=== PATIENT | male | born 1965 | race Caucasian/White ===

== ENCOUNTER 2020-05-30 12:29 | Outpatient (REF) | payer MEDICARE, MEDICAID, SELFPAY ==
--- NOTE | 2020-05-30 12:41 | XR_ITS ---
EXAMINATION: XR ANKLE, RIGHT CLINICAL INFORMATION: Anesthesia the skin, right ankle COMPARISON: None TECHNIQUE: AP, lateral, and mortise views of the right ankle. FINDINGS: No fracture or dislocation. The ankle mortise is congruent. There is a corticated ossification adjacent to the medial malleolus. Mild spurring along the ankle mortise. No ankle joint effusion. Heel spurs are noted. No gross soft tissue abnormality. XR/XR ankle RT min 3V IMPRESSION: Mild chronic and degenerative changes at the ankle. No acute abnormality. Appropriate alignment. Heel spurs noted.
[2020-05-30 14:28] LABS: D Dimer < 200 NG/ML
== END 2020-05-30 12:30 | disposition home or self-care (01) ==
LOC: HO.HMGCX 12:29
PROVIDERS: Visit Provider Nurse Practitioner Family
DX: M25.471 Effusion, right ankle (principal); R20.0 Anesthesia of skin; R20.2 Paresthesia of skin
CPT/HCPCS: 36415; 73610; 85379

== ENCOUNTER 2021-02-09 09:13 | Emergency (ER) | payer MEDICARE, MEDICAID, SELFPAY ==
--- NOTE | ~2021-02-09 | XR_ITS ---
EXAMINATION: THORACIC AND LUMBAR SPINE X-RAY CLINICAL INFORMATION: Pain post fall COMPARISON: None TECHNIQUE: 3 views of the thoracic spine and 3 views of the lumbar spine FINDINGS: Thoracic spine: Bone alignment is normal. No fracture or dislocation is seen. There is multilevel degenerative spondylosis and degenerative disc disease in the mid and lower thoracic spine. Paraspinal soft tissues are normal. Lumbar spine: There is curvature of the lower lumbar sacral spine to the right. There is mild retrolisthesis of L2 with respect to L3. Bone alignment is otherwise normal. There is degenerative disc disease at L2-L3 and L5-S1. There is lower lumbar spine facet arthritis. XR/XR thoracic spine 3V IMPRESSION: No fracture or dislocation seen. Degenerative changes.
--- NOTE | ~2021-02-09 | XR_ITS ---
EXAMINATION: THORACIC AND LUMBAR SPINE X-RAY CLINICAL INFORMATION: Pain post fall COMPARISON: None TECHNIQUE: 3 views of the thoracic spine and 3 views of the lumbar spine FINDINGS: Thoracic spine: Bone alignment is normal. No fracture or dislocation is seen. There is multilevel degenerative spondylosis and degenerative disc disease in the mid and lower thoracic spine. Paraspinal soft tissues are normal. Lumbar spine: There is curvature of the lower lumbar sacral spine to the right. There is mild retrolisthesis of L2 with respect to L3. Bone alignment is otherwise normal. There is degenerative disc disease at L2-L3 and L5-S1. There is lower lumbar spine facet arthritis. XR/XR lumbar spine 2-3V IMPRESSION: No fracture or dislocation seen. Degenerative changes.
[2021-02-09 09:45] VITALS: BP 187/110; PULSE 89; RESP 16; TEMP 35.7; O2SAT 98; BMI 36.0
--- NOTE | 2021-02-09 09:57 | PC.NURSE ---
pt placed in a w/c after being triaged and placed in the waiting room.
--- NOTE | 2021-02-09 10:20 | ED.BACK ---
HPI - Back Pain/Injury General Chief Complaint: Back Pain/Injury Stated Complaint: back pain Time Seen by Provider: 02/09/21 10:14 Source: patient Mode of arrival: ambulatory Limitations: no limitations History of Present Illness HPI Narrative: Patient comes emergency room complaining of lower thoracic and lumbar pain. Patient states that yesterday he had a seizure, he is not sure how he fell, but he has been complaining of back pain since then. Patient states the pain is localized, nonradiating, denies urinary/fecal incontinence or retention, no difference in sensation in perineal area. Patient states that he usually takes 1500 mg of divalproex at night, but yesterday due to the seizure he was postictal and did not take it, and has not taken it yet. Patient states that he usually gets 1 or 2 seizures per month. States this seizure was not out of the ordinary for him. MD elicited complaint: back injury Related Data Home Medications Medication Instructions Recorded Confirmed albuterol sulfate 90 mcg/actuation INHALATION 05/30/20 aerosol inhaler aspirin 81 mg tablet,delayed 81 mg PO DAILY 05/30/20 release atorvastatin 40 mg tablet 40 mg PO DAILY 05/30/20 clonazepam 0.5 mg tablet 0.5 mg PO TID PRN 05/30/20 clonazepam 1 mg tablet 1 mg PO BID PRN 05/30/20 divalproex 500 mg tablet,delayed 1,500 mg PO BEDTIME 05/30/20 release doxepin 6 mg tablet 6 mg PO BEDTIME PRN 05/30/20 fluticasone furoate 100 INHALATION 05/30/20 mcg-vilanterol 25 mcg/dose inhalation powder folic acid 1 mg tablet 1 mg PO DAILY 05/30/20 gabapentin 800 mg tablet 800 mg PO TID 05/30/20 haloperidol 2 mg tablet 2 mg PO BEDTIME 05/30/20 losartan 50 mg tablet 50 mg PO DAILY 05/30/20 melatonin 5 mg capsule mg PO BEDTIME 05/30/20 metformin 1,000 mg tablet 1,000 mg PO BID 05/30/20 omeprazole 20 mg capsule,delayed 20 mg PO DAILY 05/30/20 release Previous Rx's Medication Instructions Recorded tramadol 50 mg tablet 50 mg PO BID PRN #10 tab 02/09/21 Allergies Allergy/AdvReac Type Severity Reaction Status Date / Time lactose [LACTOSE] Allergy Unknown DIARRHEA Unverified 03/30/20 16:45 lisinopril [LISINOPRIL] Allergy Unknown COUGH Unverified 03/30/20 16:45 Review of Systems Review of Systems: Constitutional : No Weight loss, No Fever, No Chills, No Night Sweats, No Fatigue, No Malaise ENT/Mouth : No Hearing loss, No Ear Pain, No Nasal Congestion, No Sinus Pain, No Hoarseness, No sore throat, No Rhinorrhea, No Swallowing Difficulty Eyes: No Eye Pain, No Swelling, No Redness, No Foreign Body, No Discharge, No Vision Changes Cardiovascular : No Chest Pain, No SOB, No Dyspnea on Exertion, No Orthopnea, No Edema, No Palpitations Respiratory : No Cough, No Sputum, No Wheezing, No Smoke Exposure, No Dyspnea Gastrointestinal : No Nausea, No Vomiting, No Diarrhea, No Constipation, No abdominal Pain, No Hematochezia, No Melena Genitourinary : no irregular bleeding, No Dysuria, No Urinary Frequency, No Hematuria, No Urinary Incontinence, No Urgency, No Flank Pain, No Urinary Flow Changes, No Hesitancy Musculoskeletal : No joint pain, complaining of lower back pain bilaterally, lower thoracic and lumbar area. Skin : No Skin Lesions, No rash Neuro : No Weakness, No Numbness, No Paresthesias, yesterday had 1 seizure, No Dizziness, No Headache Psych : No Anxiety/Panic, No Depression, No SI/HI/AH/VH, No Social Issues, Heme/Lymph: No Bruising, No Bleeding,No Lymphadenopathy Endocrine : No Polyuria, No Polydipsia, No Temperature Intolerance PMFSH Past Medical History Medical History Diabetes High cholesterol Hypertension Seizure Surgical History H/O shoulder surgery Social History Social History Smoked in Last 30 Days: No Use of substances other than those prescribed or required for medical reasons: Yes Substance Use Type: Marijuana Advance Directives: No Advance Directives Information Provided: No Physical Exam Vital Signs: Vital Signs: Last Vital Signs Temp 96.3 F L 02/09/21 09:45 Pulse 89 02/09/21 10:26 Resp 20 02/09/21 10:26 BP 166/115 H 02/09/21 10:26 Pulse Ox 97 02/09/21 10:26 Body Mass Index 36.0 Const: Other: Appearance: Alert. Oriented X3. No acute distress. Eyes: Pupils equal, round and reactive to light. ENT: Pharynx normal. Neck: Normal inspection. Neck supple. No lymph nodes noted. No crepitus CVS: Normal heart rate and rhythm. Pulses normal. Normal S1 and S2 Respiratory: No respiratory distress. Breath sounds normal. No Wheezing. No rales Abdomen: Soft and nontender. No rigidity. No distention. Back: Pain to palpation bilateral to the lower thoracic and lumbar area, moderate midline tenderness, patient ambulatory Skin: Skin warm and dry. Normal skin color. Normal skin turgor. Extremities: No lower extremity edema. No lower extremity edema. No Lacerations. No Rash Neuro: Oriented X 3. No motor deficit. No sensory deficit. Moving all extermities. No slurred speech. Course Course Course Narrative: Patient feels better, patient ambulatory, he received 1 dose of 1500 mg of Depakote. Patient states he has enough medication at home. MDM - Back Pain/Injury Imaging Data Thoracic and lumbar x-ray: Radiologist's impression: Thoracic spine: Bone alignment is normal. No fracture or dislocation is seen. There is multilevel degenerative spondylosis and degenerative disc disease in the mid and lower thoracic spine. Paraspinal soft tissues are normal. Lumbar spine: There is curvature of the lower lumbar sacral spine to the right. There is mild retrolisthesis of L2 with respect to L3. Bone alignment is otherwise normal. There is degenerative disc disease at L2-L3 and L5-S1. There is lower lumbar spine facet arthritis. XR/XR lumbar spine 2-3V IMPRESSION: No fracture or dislocation seen. Degenerative changes.? Discharge Plan Discharge Clinical Impression: Thoracic back pain, Lumbar back pain Patient Disposition: Home, Self-Care Instructions: Back Pain (ED) Additional Instructions: Please follow-up with your primary care physician tomorrow. If you have any worsening or new symptoms, please return to the emergency room or call 911 Prescriptions: New tramadol 50 mg tablet 50 mg PO BID PRN (Reason: pain) Qty: 10 RF: 0 No Action losartan 50 mg tablet 50 mg PO DAILY RF: 0 haloperidol 2 mg tablet 2 mg PO BEDTIME RF: 0 doxepin 6 mg tablet 6 mg PO BEDTIME PRNRF: 0 clonazepam 1 mg tablet 1 mg PO BID PRNRF: 0 gabapentin 800 mg tablet 800 mg PO TID RF: 0 aspirin 81 mg tablet,delayed release (DR/EC) 81 mg PO DAILY RF: 0 clonazepam 0.5 mg tablet 0.5 mg PO TID PRNRF: 0 metformin 1,000 mg tablet 1,000 mg PO BID RF: 0 folic acid 1 mg tablet 1 mg PO DAILY RF: 0 atorvastatin 40 mg tablet 40 mg PO DAILY RF: 0 Breo Ellipta 100-25 mcg/dose blister with device inhalation RF: 0 divalproex 500 mg tablet,delayed release (DR/EC) 1,500 mg PO BEDTIME RF: 0 melatonin 5 mg capsule PO BEDTIME RF: 0 omeprazole 20 mg capsule,delayed release(DR/EC) 20 mg PO DAILY RF: 0 albuterol sulfate 90 mcg/actuation HFA aerosol inhaler inhalation RF: 0 Stand Alone Forms: Work/School Release
[2021-02-09] MEDS: Divalproex Sodium 500 MG TABLET.DR 1500 MG PO (10:23)
[2021-02-09 10:26] VITALS: BP 166/115; PULSE 89; RESP 20; O2SAT 97
[2021-02-09] MEDS: Morphine Sulfate 4 MG/ML CARTRIDGE IM (10:28)
== END 2021-02-09 12:09 | disposition home or self-care (01) ==
PROVIDERS: Emergency Provider Emergency Medicine
DX: M54.6 Pain in thoracic spine (principal); M54.5 Low back pain; E11.9 Type 2 diabetes mellitus without complications; I10 Essential (primary) hypertension; E78.5 Hyperlipidemia, unspecified; F12.90 Cannabis use, unspecified, uncomplicated; Z79.899 Other long term (current) drug therapy; Z79.82 Long term (current) use of aspirin; Z79.02 Long term (current) use of antithrombotics/antiplatelets
CPT/HCPCS: 72072; 72100; 96374; 99284; J2270

== ENCOUNTER 2022-11-14 11:18 | Emergency (ER) | payer MEDICARE, MEDICAID, SELFPAY ==
--- NOTE | ~2022-11-14 | CT_ITS ---
EXAMINATION: CT ABDOMEN AND PELVIS WITHOUT CONTRAST CLINICAL INFORMATION: Left-sided testicle pain and inguinal pain. COMPARISON: None available. TECHNIQUE: Multidetector volumetric imaging was performed from the superior aspect of the liver through the pubic symphysis. Sagittal and coronal reformatted images were obtained on the technologist's workstation. This CT examination was performed using dose optimization techniques as appropriate, variously including the following: *Automated exposure control *Adjustment of mA and/or kV according to patient size (this includes techniques or standardized protocols for targeted exams where dose is matched to indication/reason for exam; i.e. extremities or head) *Use of iterative reconstruction technique DLP: 1209 mGy-cm FINDINGS: LUNG BASES: The visualized lung bases are unremarkable. LIVER, GALLBLADDER, AND BILIARY TREE: The liver is prominent and elongated. No focal hepatic mass or biliary dilatation. The gallbladder is unremarkable with no evidence of radiopaque gallstones, gallbladder wall thickening, or obvious pericholecystic inflammatory changes. PANCREAS: Unremarkable. SPLEEN: Unremarkable. ADRENAL GLANDS: Unremarkable. KIDNEYS AND URETERS: There are punctate bilateral nephroliths. These appear nonobstructive. The largest stone in the central right kidney measures 4.9 mm. The largest stone in the upper left kidney measures 6.2 mm. No suspicious renal masses. No perinephric collections. No evidence for hydronephrosis, or calcification along the course of the ureters. BLADDER: Unremarkable. GASTROINTESTINAL TRACT: There appears to be an element of lipomatous infiltration at the cecum but I do not see evidence for bowel obstruction or right or left lower quadrant inflammatory change. Appendix normal. ABDOMINAL WALL: No significant hernia is appreciated. LYMPH NODES: Normal. VASCULAR: Aorta is atherosclerotic but nonaneurysmal. PELVIC VISCERA: Punctate calcifications within the prostate. No ascites or adenopathy deep in the pelvis. OSSEOUS STRUCTURES: There is moderate to advanced degenerative change in the lower thoracic spine and mid and lower lumbar spine. No fracture. Hyperlordosis of the lumbar spine noted. CT/CT abdomen pelvis wo IV con IMPRESSION: No acute findings. There is no evidence for left lower quadrant inflammatory change. There is bilateral nephrolithiasis but no hydronephrosis.
--- NOTE | ~2022-11-14 | US_ITS ---
EXAMINATION: US SCROTUM CLINICAL INFORMATION: Left testicular pain. COMPARISON: None available. TECHNIQUE: A sonogram of the scrotum was performed assessing velazco-scale appearance and color Doppler flow. Spectral Doppler analysis of the arterial and venous flow were performed in the testes bilaterally. FINDINGS: RIGHT: Right testicle measures 3.6 x 2.2 x 2.6 cm, volume 10.6 mL. There are small anechoic testicular cyst measuring 5 x 3 x 3 mm. No additional lesions seen. Spectral Doppler analysis of the arterial and venous flow is normal but slightly diminished compared to left testes. Patient has no pain on the right side. Right epididymal head is normal in size. No right hydrocele or varicocele is seen. Right epididymal Doppler flow is normal. LEFT: Left testicle measures 3.7 x 1.9 x 2.6 cm, volume 9.5 mL. No focal testicular parenchymal lesions are visualized. Spectral Doppler analysis of the arterial and venous flow is normal in the left testis. Left epididymal head is normal in size. No left hydrocele or varicocele is seen. Left epididymal Doppler flow is normal. US/US scrotum IMPRESSION: Small right testicular cyst with slightly diminished color-flow most seen along the periphery of the testes when compared to left side. Normal left testes with normal Doppler flow. Normal bilateral epididymides.
--- NOTE | ~2022-11-14 | US_ITS ---
EXAMINATION: US SCROTUM CLINICAL INFORMATION: Left testicular pain. COMPARISON: None available. TECHNIQUE: A sonogram of the scrotum was performed assessing velazco-scale appearance and color Doppler flow. Spectral Doppler analysis of the arterial and venous flow were performed in the testes bilaterally. FINDINGS: RIGHT: Right testicle measures 3.6 x 2.2 x 2.6 cm, volume 10.6 mL. There are small anechoic testicular cyst measuring 5 x 3 x 3 mm. No additional lesions seen. Spectral Doppler analysis of the arterial and venous flow is normal but slightly diminished compared to left testes. Patient has no pain on the right side. Right epididymal head is normal in size. No right hydrocele or varicocele is seen. Right epididymal Doppler flow is normal. LEFT: Left testicle measures 3.7 x 1.9 x 2.6 cm, volume 9.5 mL. No focal testicular parenchymal lesions are visualized. Spectral Doppler analysis of the arterial and venous flow is normal in the left testis. Left epididymal head is normal in size. No left hydrocele or varicocele is seen. Left epididymal Doppler flow is normal. US/US scrotum doppler IMPRESSION: Small right testicular cyst with slightly diminished color-flow most seen along the periphery of the testes when compared to left side. Normal left testes with normal Doppler flow. Normal bilateral epididymides.
[2022-11-14 12:20] VITALS: BP 215/121; PULSE 84; RESP 16; TEMP 36.6; O2SAT 97; BMI 39.2
--- NOTE | 2022-11-14 12:20 | ED_ITS ---
HPI - General Adult General Chief complaint: General Medical <JOVAN Hollis - Last Filed: 11/14/22 12:27> Stated complaint: l hip groin pain <JOVAN Hollis - Last Filed: 11/14/22 12:27> Time Seen by Provider: 11/14/22 12:26 <JOVAN Hollis - Last Filed: 11/14/22 12:27> Source: patient <JOVAN Aguiar - Last Filed: 11/14/22 12:30> Mode of arrival: ambulatory <JOVAN Aguiar - Last Filed: 11/14/22 12:30> Limitations: no limitations <JOVAN Aguiar - Last Filed: 11/14/22 12:30> History of Present Illness HPI narrative: 57-year-old male arrives with complaints of chronic left inguinal pain that has increased over the last 12 hours but denies any nausea, vomiting, fever, chills, obstipation. Patient denies any trauma to the area and denies any penile discharge. <Juju Lozada MD - Last Filed: 11/14/22 17:40> Related Data Home medications: Home Medications Medication Instructions Recorded Confirmed albuterol sulfate 90 mcg/actuation inhalation 05/30/20 aerosol inhaler aspirin 81 mg tablet,delayed 81 mg PO DAILY 05/30/20 release atorvastatin 40 mg tablet 40 mg PO DAILY 05/30/20 clonazepam 0.5 mg tablet 0.5 mg PO TID PRN 05/30/20 clonazepam 1 mg tablet 1 mg PO BID PRN 05/30/20 divalproex 500 mg tablet,delayed 1,500 mg PO BEDTIME 05/30/20 release doxepin 6 mg tablet 6 mg PO BEDTIME PRN 05/30/20 fluticasone furoate 100 inhalation 05/30/20 mcg-vilanterol 25 mcg/dose inhalation powder folic acid 1 mg tablet 1 mg PO DAILY 05/30/20 gabapentin 800 mg tablet 800 mg PO TID 05/30/20 haloperidol 2 mg tablet 2 mg PO BEDTIME 05/30/20 losartan 50 mg tablet 50 mg PO DAILY 05/30/20 melatonin 5 mg capsule mg PO BEDTIME 05/30/20 metformin 1,000 mg tablet 1,000 mg PO BID 05/30/20 omeprazole 20 mg capsule,delayed 20 mg PO DAILY 05/30/20 release Previous Rx's Medication Instructions Recorded tramadol 50 mg tablet 50 mg PO BID PRN pain #10 tabs 02/09/21 hydralazine 10 mg tablet 10 mg PO BID 30 days #60 tabs 11/14/22 losartan 100 mg tablet 100 mg PO DAILY 30 days #30 tabs 11/14/22 <JOVAN Hollis - Last Filed: 11/14/22 12:27> Allergies/adverse reactions: Allergies Allergy/AdvReac Type Severity Reaction Status Date / Time lactose [LACTOSE] Allergy Unknown DIARRHEA Unverified 11/14/22 12:26 lisinopril [LISINOPRIL] Allergy Unknown COUGH Unverified 11/14/22 12:26 simvastatin Allergy Itching Verified 11/14/22 12:26 <JOVAN Hollis - Last Filed: 11/14/22 12:27> Review of Systems Review of Systems: Pertinent positives and negatives as stated in HPI <Juju Lozada MD - Last Filed: 11/14/22 17:40> PMFSH Past Medical History Source: nursing notes reviewed <Juju Lozada MD - Last Filed: 11/14/22 17:40> Medical History: Medical History Diabetes High cholesterol Hypertension Seizure <JOVAN Hollis - Last Filed: 11/14/22 12:27> Surgical History: Surgical History H/O shoulder surgery <JOVAN Hollis - Last Filed: 11/14/22 12:27> Social History Social History: Social History Alcohol intake: former Smoked in Last 30 Days: Yes Use of substances other than those prescribed or required for medical reasons: No Substance Use Type: Marijuana Advance Directives: No Advance Directives Information Provided: Yes <JOVAN Hollis - Last Filed: 11/14/22 12:27> Physical Exam ED Vital Signs: Vital Signs - 24 hr 11/14/22 12:20 11/14/22 14:59 11/14/22 15:33 Temperature 97.8 F 98.1 F Pulse Rate 84 80 79 Respiratory Rate 16 20 16 Blood Pressure 215/121 H 188/122 H 197/139 H Pulse Oximetry 97 98 Oxygen Delivery Method Room Air Room Air 11/14/22 16:54 Temperature Pulse Rate Respiratory Rate Blood Pressure 177/105 H Pulse Oximetry Oxygen Delivery Method BMI result Body Mass Index 39.2 <JOVAN Hollis - Last Filed: 11/14/22 12:27> Vital Signs - 24 hr 11/14/22 12:20 11/14/22 14:59 11/14/22 15:33 Temperature 97.8 F 98.1 F Pulse Rate 84 80 79 Respiratory Rate 16 20 16 Blood Pressure 215/121 H 188/122 H 197/139 H Pulse Oximetry 97 98 Oxygen Delivery Method Room Air Room Air 11/14/22 16:54 Temperature Pulse Rate Respiratory Rate Blood Pressure 177/105 H Pulse Oximetry Oxygen Delivery Method BMI result Body Mass Index 39.2 <JOVAN Aguiar - Last Filed: 11/14/22 12:30> Vital Signs - 24 hr 11/14/22 12:20 11/14/22 14:59 11/14/22 15:33 Temperature 97.8 F 98.1 F Pulse Rate 84 80 79 Respiratory Rate 16 20 16 Blood Pressure 215/121 H 188/122 H 197/139 H Pulse Oximetry 97 98 Oxygen Delivery Method Room Air Room Air 11/14/22 16:54 Temperature Pulse Rate Respiratory Rate Blood Pressure 177/105 H Pulse Oximetry Oxygen Delivery Method BMI result Body Mass Index 39.2 VITAL SIGNS: Reviewed. GENERAL: Elevated BMI, Well developed, well nourished, in no acute distress. HEAD: Normocephalic/atraumatic EYES: PERRLA, EOMI EARS: Ext canals without abnormality NOSE: Nares patent bilateral OROPHARYNX: no oral lesions noted, posterior pharynx clear NECK: Supple, no adenopathy LUNGS: Normal breath sounds. No adventitious sounds or accessory muscle use. SpO2<97> CARDIOVASCULAR: Regular rate and rhythm without noted murmurs, no JVD or lower extremity edema. ABDOMEN: Soft, non-tender, non-distended with bowel sounds. : [[employer] Professional-[employer]] Uncircumcised male with bilateral descended testes, no tenderness to palpation the testes or epididymis, no erythema or induration of the skin, patient does have bilateral hernias and although does not have significant pain on assessment of direct hernia there is no pain but patient complains of pain along left inguinal without obvious adenopathy/erythema. MUSCULOSKELETAL: No tenderness, deformities, or effusions noted on gross inspection. EXTREMITIES: No cyanosis, clubbing or edema. SKIN: Inspection of the skin reveals no rashes NEUROLOGIC: Alert and oriented x 4. Strength and sensation to light touch were grossly intact x 4. <Juju Lozada MD - Last Filed: 11/14/22 17:40> Course Course Course Narrative: 57 year old male with PMH of diabetes, HTN and hypercholesterolemia presents to the ED with L groin/testicle pain for the last month that is worsening. Patient denies history of kidney stones. 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 Patient denies taking any medications for this and denies history of delerium tremens. Patient reports he has not taken any of his medications for 1 week. PE: CIWA 0, hypertensive at 215/121, NIHSS 0 Plan: basic labs, imaging, ordered all home BP medications <JOVAN Hollis - Last Filed: 11/14/22 12:27> Medications Administered Discontinued Medications Generic Name Dose Route Start Last Admin Trade Name Saud PRN Reason Stop Dose Admin Amlodipine Besylate 10 mg 11/14/22 14:05 11/14/22 14:56 Amlodipine Besylate 10 Mg Tablet PO 11/14/22 14:06 10 mg ONCE ONE Administration Protocol Atorvastatin Calcium 40 mg 11/14/22 12:26 11/14/22 14:56 Atorvastatin Calcium 40 Mg Tablet PO 11/14/22 12:27 40 mg ONCE ONE Administration Clonazepam 0.5 mg 11/14/22 12:26 11/14/22 14:55 Clonazepam 0.5 Mg Tablet PO 11/14/22 12:27 0.5 mg ONCE ONE Administration Hydralazine HCl 25 mg 11/14/22 15:38 11/14/22 16:06 Hydralazine Hcl 25 Mg Tablet PO 11/14/22 15:39 25 mg ONCE ONE Administration Protocol <JOVAN Hollis - Last Filed: 11/14/22 12:27> Medications Administered Discontinued Medications Generic Name Dose Route Start Last Admin Trade Name Freq PRN Reason Stop Dose Admin Amlodipine Besylate 10 mg 11/14/22 14:05 11/14/22 14:56 Amlodipine Besylate 10 Mg Tablet PO 11/14/22 14:06 10 mg ONCE ONE Administration Protocol Atorvastatin Calcium 40 mg 11/14/22 12:26 11/14/22 14:56 Atorvastatin Calcium 40 Mg Tablet PO 11/14/22 12:27 40 mg ONCE ONE Administration Clonazepam 0.5 mg 11/14/22 12:26 11/14/22 14:55 Clonazepam 0.5 Mg Tablet PO 11/14/22 12:27 0.5 mg ONCE ONE Administration Hydralazine HCl 25 mg 11/14/22 15:38 11/14/22 16:06 Hydralazine Hcl 25 Mg Tablet PO 11/14/22 15:39 25 mg ONCE ONE Administration Protocol <JOVAN Aguiar - Last Filed: 11/14/22 12:30> Medications Administered Discontinued Medications Generic Name Dose Route Start Last Admin Trade Name Freq PRN Reason Stop Dose Admin Amlodipine Besylate 10 mg 11/14/22 14:05 11/14/22 14:56 Amlodipine Besylate 10 Mg Tablet PO 11/14/22 14:06 10 mg ONCE ONE Administration Protocol Atorvastatin Calcium 40 mg 11/14/22 12:26 11/14/22 14:56 Atorvastatin Calcium 40 Mg Tablet PO 11/14/22 12:27 40 mg ONCE ONE Administration Clonazepam 0.5 mg 11/14/22 12:26 11/14/22 14:55 Clonazepam 0.5 Mg Tablet PO 11/14/22 12:27 0.5 mg ONCE ONE Administration Hydralazine HCl 25 mg 11/14/22 15:38 11/14/22 16:06 Hydralazine Hcl 25 Mg Tablet PO 11/14/22 15:39 25 mg ONCE ONE Administration Protocol <Juju Lozada MD - Last Filed: 11/14/22 17:40> Medical Decision Making Medical Decision Making MDM Narrative: 57-year-old male with left inguinal pain and hernia, no evidence of strangulation or incarceration of said hernia and no obstructive symptoms. No evidence to suggest STI, diverticulitis or testicular torsion. Patient is significantly overweight and also has significant history of hypertension for which she is no longer taking his blood pressure medication but does not have any symptoms related with the elevated blood pressure. Patient will be provided with 10 mg of Norvasc in re-evaluated. I reviewed all lab work there are no acute findings and will follow-up on the imaging studies. 1412: Notified by nursing that the product development technician noted no evidence of torsion on the left but some decreased flow on the right that is suspected to be chronic in nature and patient has no pain on examination of the right testicle. 1539: Reviewed all investigations and my interpretation is that patient has inguinal pain without evidence incarcerated/strangulated hernia and no intra- abdominal catastrophe. Patient is noted to be hypertensive without neurologic or chest symptoms. Patient is non compliant with his blood pressure medication and has been given 10 mg of Norvasc here in the emergency room which we will follow with hydralazine 25 mg. Otherwise patient will be discharged with strict instructions to follow-up with his primary care provider at his earliest convenience. 1717: Blood pressure is starting to improve after having received hydralazine, patient remains chest pain-free, and strongly suspect that the EKG changes that are noted when compared to his prior EKG are directly related with his hypertensive status. Repeat EKG shows concordant response to the reduction in blood pressure with some improvement in the ST abnormalities. Patient continues to be chest pain-free and will receive medication for his left inguinal discomfort and given the degree of blood pressure derangements will discharge the patient on medications with strong encouragement to follow-up with the primary care provider. <Juju Lozada MD - Last Filed: 11/14/22 17:40> Differential Diagnosis Please see the discussion above <Juju Lozada MD - Last Filed: 11/14/22 17:40> Lab Data Please see the discussion above <Juju Lozada MD - Last Filed: 11/14/22 17:40> Result Diagrams: 11/14/22 12:41 11/14/22 12:41 <JOVAN Hollis - Last Filed: 11/14/22 12:27> Labs: Lab Results 11/14/22 11/14/22 11/14/22 Range/Units 12:41 12:41 15:55 WBC 6.4 (4.8-10.8) X10*3/uL RBC 5.66 (4.60-5.80) X10*6/uL Hgb 16.9 (14.0-18.0) g/dl Hct 51.2 (42.0-52.0) % MCV 90.5 (80.0-98.0) fL MCH 29.9 (27.0-33.0) pg MCHC 33.0 (31.0-36.0) g/dl RDW 13.3 (11.0-16.0) % Plt Count 193 (160-400) X10*3/uL MPV 10.0 (9.4-12.4) fL Immature Gran % (Auto) 0.5 H (0.0-0.4) % Neut % (Auto) 67.2 (45-73) % Lymph % (Auto) 20.4 (20-40) % [place] % (Auto) 10.0 (2-11) % Eos % (Auto) 1.3 (0-4) % Baso % (Auto) 0.6 (0-2) % Lymph # (Auto) 1.3 (1.2-4.9) X10*3/uL [place] # (Auto) 0.6 (0.1-1.2) X10*3/uL Eos # (Auto) 0.1 (0.0-0.4) X10*3/uL Baso # (Auto) 0.0 (0.0-0.2) X10*3/uL Abs Immat Gran (auto) 0.03 (0.00-0.03) X10*3/uL Absolute Neuts (auto) 4.3 (2.0-8.3) x10*3/uL Absolute Nucleated RBC 0.000 (0.0-0.012) X10*3/uL Nucleated RBC % (auto) 0.0 (0.0-0.2) /100WBC Sodium 140 (135-145) mmol/L Potassium 3.7 (3.3-5.1) mmol/L Chloride 103 (96-108) mmol/L Carbon Dioxide 26 (22-29) mmol/L Anion Gap 15 (12-20) BUN 11 (9-16) mg/dL Creatinine 1.03 (0.5-1.4) mg/dL Estim Creat Clear Calc 96.3 Estimated GFR > 60 Random Glucose 105 (60-115) mg/dL Calcium 9.6 (8.4-10.2) mg/dL Total Bilirubin 1.9 H (0.0-1.0) mg/dL AST 30 (5-37) U/L ALT 21 (0-40) U/L Alkaline Phosphatase 89 (39-117) U/L Troponin I High Sens (<3.5-35.0) ng/L Total Protein 7.0 (6.5-8.0) g/dL Albumin 4.3 (3.5-5.0) g/dL Urine Color Dark Yellow Urine Appearance Cloudy Urine pH 5.5 (5.0-9.0) Ur Specific [place] 1.025 (1.005-1.025) Urine Protein 100 (2+) H (Neg-Trace) mg/dL Urine Glucose (UA) Negative (Negative) mg/dL Urine Ketones Trace (Negative) mg/dL Urine Blood Negative (Negative) Urine Nitrite Negative (Negative) Ur Leukocyte Esterase Large (3+) H (Negative) Urine RBC 0-2 (0-2) /HPF Urine WBC >50 H (0-5) /HPF Ur Squamous Epith Cells 0-2 (0-2) /HPF Urine Bacteria None Seen (None Seen) Hyaline Casts 0-2 (0-2) /LPF Urine Opiates Screen (Not Detect) Urine Fentanyl Screen (Not Detect) Ur Barbiturates Screen (Not Detect) Ur Phencyclidine Scrn (Not Detect) Ur Amphetamines Screen (Not Detect) U Benzodiazepines Scrn (Not Detect) Urine Cocaine Screen (Not Detect) U Marijuana (THC) Screen (Not Detect) 11/14/22 11/14/22 Range/Units 15:55 16:00 WBC (4.8-10.8) X10*3/uL RBC (4.60-5.80) X10*6/uL Hgb (14.0-18.0) g/dl Hct (42.0-52.0) % MCV (80.0-98.0) fL MCH (27.0-33.0) pg MCHC (31.0-36.0) g/dl RDW (11.0-16.0) % Plt Count (160-400) X10*3/uL MPV (9.4-12.4) fL Immature Gran % (Auto) (0.0-0.4) % Neut % (Auto) (45-73) % Lymph % (Auto) (20-40) % [place] % (Auto) (2-11) % Eos % (Auto) (0-4) % Baso % (Auto) (0-2) % Lymph # (Auto) (1.2-4.9) X10*3/uL [place] # (Auto) (0.1-1.2) X10*3/uL Eos # (Auto) (0.0-0.4) X10*3/uL Baso # (Auto) (0.0-0.2) X10*3/uL Abs Immat Gran (auto) (0.00-0.03) X10*3/uL Absolute Neuts (auto) (2.0-8.3) x10*3/uL Absolute Nucleated RBC (0.0-0.012) X10*3/uL Nucleated RBC % (auto) (0.0-0.2) /100WBC Sodium (135-145) mmol/L Potassium (3.3-5.1) mmol/L Chloride (96-108) mmol/L Carbon Dioxide (22-29) mmol/L Anion Gap (12-20) BUN (9-16) mg/dL Creatinine (0.5-1.4) mg/dL Estim Creat Clear Calc Estimated GFR Random Glucose (60-115) mg/dL Calcium (8.4-10.2) mg/dL Total Bilirubin (0.0-1.0) mg/dL AST (5-37) U/L ALT (0-40) U/L Alkaline Phosphatase (39-117) U/L Troponin I High Sens 30.7 (<3.5-35.0) ng/L Total Protein (6.5-8.0) g/dL Albumin (3.5-5.0) g/dL Urine Color Urine Appearance Urine pH (5.0-9.0) Ur Specific [place] (1.005-1.025) Urine Protein (Neg-Trace) mg/dL Urine Glucose (UA) (Negative) mg/dL Urine Ketones (Negative) mg/dL Urine Blood (Negative) Urine Nitrite (Negative) Ur Leukocyte Esterase (Negative) Urine RBC (0-2) /HPF Urine WBC (0-5) /HPF Ur Squamous Epith Cells (0-2) /HPF Urine Bacteria (None Seen) Hyaline Casts (0-2) /LPF Urine Opiates Screen Not Detected (Not Detect) Urine Fentanyl Screen Not Detected (Not Detect) Ur Barbiturates Screen Not Detected (Not Detect) Ur Phencyclidine Scrn Not Detected (Not Detect) Ur Amphetamines Screen Not Detected (Not Detect) U Benzodiazepines Scrn Not Detected (Not Detect) Urine Cocaine Screen Not Detected (Not Detect) U Marijuana (THC) Screen POSITIVE H (Not Detect) <JOVAN Hollis - Last Filed: 11/14/22 12:27> Lab Results 11/14/22 11/14/22 11/14/22 Range/Units 12:41 12:41 15:55 WBC 6.4 (4.8-10.8) X10*3/uL RBC 5.66 (4.60-5.80) X10*6/uL Hgb 16.9 (14.0-18.0) g/dl Hct 51.2 (42.0-52.0) % MCV 90.5 (80.0-98.0) fL MCH 29.9 (27.0-33.0) pg MCHC 33.0 (31.0-36.0) g/dl RDW 13.3 (11.0-16.0) % Plt Count 193 (160-400) X10*3/uL MPV 10.0 (9.4-12.4) fL Immature Gran % (Auto) 0.5 H (0.0-0.4) % Neut % (Auto) 67.2 (45-73) % Lymph % (Auto) 20.4 (20-40) % [place] % (Auto) 10.0 (2-11) % Eos % (Auto) 1.3 (0-4) % Baso % (Auto) 0.6 (0-2) % Lymph # (Auto) 1.3 (1.2-4.9) X10*3/uL [place] # (Auto) 0.6 (0.1-1.2) X10*3/uL Eos # (Auto) 0.1 (0.0-0.4) X10*3/uL Baso # (Auto) 0.0 (0.0-0.2) X10*3/uL Abs Immat Gran (auto) 0.03 (0.00-0.03) X10*3/uL Absolute Neuts (auto) 4.3 (2.0-8.3) x10*3/uL Absolute Nucleated RBC 0.000 (0.0-0.012) X10*3/uL Nucleated RBC % (auto) 0.0 (0.0-0.2) /100WBC Sodium 140 (135-145) mmol/L Potassium 3.7 (3.3-5.1) mmol/L Chloride 103 (96-108) mmol/L Carbon Dioxide 26 (22-29) mmol/L Anion Gap 15 (12-20) BUN 11 (9-16) mg/dL Creatinine 1.03 (0.5-1.4) mg/dL Estim Creat Clear Calc 96.3 Estimated GFR > 60 Random Glucose 105 (60-115) mg/dL Calcium 9.6 (8.4-10.2) mg/dL Total Bilirubin 1.9 H (0.0-1.0) mg/dL AST 30 (5-37) U/L ALT 21 (0-40) U/L Alkaline Phosphatase 89 (39-117) U/L Troponin I High Sens (<3.5-35.0) ng/L Total Protein 7.0 (6.5-8.0) g/dL Albumin 4.3 (3.5-5.0) g/dL Urine Color Dark Yellow Urine Appearance Cloudy Urine pH 5.5 (5.0-9.0) Ur Specific [place] 1.025 (1.005-1.025) Urine Protein 100 (2+) H (Neg-Trace) mg/dL Urine Glucose (UA) Negative (Negative) mg/dL Urine Ketones Trace (Negative) mg/dL Urine Blood Negative (Negative) Urine Nitrite Negative (Negative) Ur Leukocyte Esterase Large (3+) H (Negative) Urine RBC 0-2 (0-2) /HPF Urine WBC >50 H (0-5) /HPF Ur Squamous Epith Cells 0-2 (0-2) /HPF Urine Bacteria None Seen (None Seen) Hyaline Casts 0-2 (0-2) /LPF Urine Opiates Screen (Not Detect) Urine Fentanyl Screen (Not Detect) Ur Barbiturates Screen (Not Detect) Ur Phencyclidine Scrn (Not Detect) Ur Amphetamines Screen (Not Detect) U Benzodiazepines Scrn (Not Detect) Urine Cocaine Screen (Not Detect) U Marijuana (THC) Screen (Not Detect) 11/14/22 11/14/22 Range/Units 15:55 16:00 WBC (4.8-10.8) X10*3/uL RBC (4.60-5.80) X10*6/uL Hgb (14.0-18.0) g/dl Hct (42.0-52.0) % MCV (80.0-98.0) fL MCH (27.0-33.0) pg MCHC (31.0-36.0) g/dl RDW (11.0-16.0) % Plt Count (160-400) X10*3/uL MPV (9.4-12.4) fL Immature Gran % (Auto) (0.0-0.4) % Neut % (Auto) (45-73) % Lymph % (Auto) (20-40) % [place] % (Auto) (2-11) % Eos % (Auto) (0-4) % Baso % (Auto) (0-2) % Lymph # (Auto) (1.2-4.9) X10*3/uL [place] # (Auto) (0.1-1.2) X10*3/uL Eos # (Auto) (0.0-0.4) X10*3/uL Baso # (Auto) (0.0-0.2) X10*3/uL Abs Immat Gran (auto) (0.00-0.03) X10*3/uL Absolute Neuts (auto) (2.0-8.3) x10*3/uL Absolute Nucleated RBC (0.0-0.012) X10*3/uL Nucleated RBC % (auto) (0.0-0.2) /100WBC Sodium (135-145) mmol/L Potassium (3.3-5.1) mmol/L Chloride (96-108) mmol/L Carbon Dioxide (22-29) mmol/L Anion Gap (12-20) BUN (9-16) mg/dL Creatinine (0.5-1.4) mg/dL Estim Creat Clear Calc Estimated GFR Random Glucose (60-115) mg/dL Calcium (8.4-10.2) mg/dL Total Bilirubin (0.0-1.0) mg/dL AST (5-37) U/L ALT (0-40) U/L Alkaline Phosphatase (39-117) U/L Troponin I High Sens 30.7 (<3.5-35.0) ng/L Total Protein (6.5-8.0) g/dL Albumin (3.5-5.0) g/dL Urine Color Urine Appearance Urine pH (5.0-9.0) Ur Specific [place] (1.005-1.025) Urine Protein (Neg-Trace) mg/dL Urine Glucose (UA) (Negative) mg/dL Urine Ketones (Negative) mg/dL Urine Blood (Negative) Urine Nitrite (Negative) Ur Leukocyte Esterase (Negative) Urine RBC (0-2) /HPF Urine WBC (0-5) /HPF Ur Squamous Epith Cells (0-2) /HPF Urine Bacteria (None Seen) Hyaline Casts (0-2) /LPF Urine Opiates Screen Not Detected (Not Detect) Urine Fentanyl Screen Not Detected (Not Detect) Ur Barbiturates Screen Not Detected (Not Detect) Ur Phencyclidine Scrn Not Detected (Not Detect) Ur Amphetamines Screen Not Detected (Not Detect) U Benzodiazepines Scrn Not Detected (Not Detect) Urine Cocaine Screen Not Detected (Not Detect) U Marijuana (THC) Screen POSITIVE H (Not Detect) <JOVAN Aguiar - Last Filed: 11/14/22 12:30> Lab Results 11/14/22 11/14/22 11/14/22 Range/Units 12:41 12:41 15:55 WBC 6.4 (4.8-10.8) X10*3/uL RBC 5.66 (4.60-5.80) X10*6/uL Hgb 16.9 (14.0-18.0) g/dl Hct 51.2 (42.0-52.0) % MCV 90.5 (80.0-98.0) fL MCH 29.9 (27.0-33.0) pg MCHC 33.0 (31.0-36.0) g/dl RDW 13.3 (11.0-16.0) % Plt Count 193 (160-400) X10*3/uL MPV 10.0 (9.4-12.4) fL Immature Gran % (Auto) 0.5 H (0.0-0.4) % Neut % (Auto) 67.2 (45-73) % Lymph % (Auto) 20.4 (20-40) % [place] % (Auto) 10.0 (2-11) % Eos % (Auto) 1.3 (0-4) % Baso % (Auto) 0.6 (0-2) % Lymph # (Auto) 1.3 (1.2-4.9) X10*3/uL [place] # (Auto) 0.6 (0.1-1.2) X10*3/uL Eos # (Auto) 0.1 (0.0-0.4) X10*3/uL Baso # (Auto) 0.0 (0.0-0.2) X10*3/uL Abs Immat Gran (auto) 0.03 (0.00-0.03) X10*3/uL Absolute Neuts (auto) 4.3 (2.0-8.3) x10*3/uL Absolute Nucleated RBC 0.000 (0.0-0.012) X10*3/uL Nucleated RBC % (auto) 0.0 (0.0-0.2) /100WBC Sodium 140 (135-145) mmol/L Potassium 3.7 (3.3-5.1) mmol/L Chloride 103 (96-108) mmol/L Carbon Dioxide 26 (22-29) mmol/L Anion Gap 15 (12-20) BUN 11 (9-16) mg/dL Creatinine 1.03 (0.5-1.4) mg/dL Estim Creat Clear Calc 96.3 Estimated GFR > 60 Random Glucose 105 (60-115) mg/dL Calcium 9.6 (8.4-10.2) mg/dL Total Bilirubin 1.9 H (0.0-1.0) mg/dL AST 30 (5-37) U/L ALT 21 (0-40) U/L Alkaline Phosphatase 89 (39-117) U/L Troponin I High Sens (<3.5-35.0) ng/L Total Protein 7.0 (6.5-8.0) g/dL Albumin 4.3 (3.5-5.0) g/dL Urine Color Dark Yellow Urine Appearance Cloudy Urine pH 5.5 (5.0-9.0) Ur Specific [place] 1.025 (1.005-1.025) Urine Protein 100 (2+) H (Neg-Trace) mg/dL Urine Glucose (UA) Negative (Negative) mg/dL Urine Ketones Trace (Negative) mg/dL Urine Blood Negative (Negative) Urine Nitrite Negative (Negative) Ur Leukocyte Esterase Large (3+) H (Negative) Urine RBC 0-2 (0-2) /HPF Urine WBC >50 H (0-5) /HPF Ur Squamous Epith Cells 0-2 (0-2) /HPF Urine Bacteria None Seen (None Seen) Hyaline Casts 0-2 (0-2) /LPF Urine Opiates Screen (Not Detect) Urine Fentanyl Screen (Not Detect) Ur Barbiturates Screen (Not Detect) Ur Phencyclidine Scrn (Not Detect) Ur Amphetamines Screen (Not Detect) U Benzodiazepines Scrn (Not Detect) Urine Cocaine Screen (Not Detect) U Marijuana (THC) Screen (Not Detect) 11/14/22 11/14/22 Range/Units 15:55 16:00 WBC (4.8-10.8) X10*3/uL RBC (4.60-5.80) X10*6/uL Hgb (14.0-18.0) g/dl Hct (42.0-52.0) % MCV (80.0-98.0) fL MCH (27.0-33.0) pg MCHC (31.0-36.0) g/dl RDW (11.0-16.0) % Plt Count (160-400) X10*3/uL MPV (9.4-12.4) fL Immature Gran % (Auto) (0.0-0.4) % Neut % (Auto) (45-73) % Lymph % (Auto) (20-40) % [place] % (Auto) (2-11) % Eos % (Auto) (0-4) % Baso % (Auto) (0-2) % Lymph # (Auto) (1.2-4.9) X10*3/uL [place] # (Auto) (0.1-1.2) X10*3/uL Eos # (Auto) (0.0-0.4) X10*3/uL Baso # (Auto) (0.0-0.2) X10*3/uL Abs Immat Gran (auto) (0.00-0.03) X10*3/uL Absolute Neuts (auto) (2.0-8.3) x10*3/uL Absolute Nucleated RBC (0.0-0.012) X10*3/uL Nucleated RBC % (auto) (0.0-0.2) /100WBC Sodium (135-145) mmol/L Potassium (3.3-5.1) mmol/L Chloride (96-108) mmol/L Carbon Dioxide (22-29) mmol/L Anion Gap (12-20) BUN (9-16) mg/dL Creatinine (0.5-1.4) mg/dL Estim Creat Clear Calc Estimated GFR Random Glucose (60-115) mg/dL Calcium (8.4-10.2) mg/dL Total Bilirubin (0.0-1.0) mg/dL AST (5-37) U/L ALT (0-40) U/L Alkaline Phosphatase (39-117) U/L Troponin I High Sens 30.7 (<3.5-35.0) ng/L Total Protein (6.5-8.0) g/dL Albumin (3.5-5.0) g/dL Urine Color Urine Appearance Urine pH (5.0-9.0) Ur Specific [place] (1.005-1.025) Urine Protein (Neg-Trace) mg/dL Urine Glucose (UA) (Negative) mg/dL Urine Ketones (Negative) mg/dL Urine Blood (Negative) Urine Nitrite (Negative) Ur Leukocyte Esterase (Negative) Urine RBC (0-2) /HPF Urine WBC (0-5) /HPF Ur Squamous Epith Cells (0-2) /HPF Urine Bacteria (None Seen) Hyaline Casts (0-2) /LPF Urine Opiates Screen Not Detected (Not Detect) Urine Fentanyl Screen Not Detected (Not Detect) Ur Barbiturates Screen Not Detected (Not Detect) Ur Phencyclidine Scrn Not Detected (Not Detect) Ur Amphetamines Screen Not Detected (Not Detect) U Benzodiazepines Scrn Not Detected (Not Detect) Urine Cocaine Screen Not Detected (Not Detect) U Marijuana (THC) Screen POSITIVE H (Not Detect) <Juju Lozada MD - Last Filed: 11/14/22 17:40> Independent Interpretation I performed an independent interpretation of an: EKG <Juju Lozada MD - Last Filed: 11/14/22 17:40> Interpretation: Normal sinus rhythm, HR-74, no STEMI but significant ST changes better likely related with patient's hypertension, AK within normal limits, QRS-118, QTC-492. 1720: NSR, HR-86, no STEMI but ST changes likely attributable to hypertension and LVH that have improved with blood pressure reduction, [place] within normal limits QRS-120, QTC-516 <Juju Lozada MD - Last Filed: 11/14/22 17:40> Radiology Impression Radiologist Impression: My interpretation is in agreement with radiology's impression of the imaging studies. <Juju Lozada MD - Last Filed: 11/14/22 17:40> External Record Review External record reviewed: Prior outpatient labs <Juju Lozada MD - Last Filed: 11/14/22 17:40> Discharge Plan Discharge Clinical Impression: Discomfort of left groin <JOVAN Hollis - Last Filed: 11/14/22 12:27> Patient Disposition: Home, Self-Care <JOVAN Hollis - Last Filed: 11/14/22 12:27> Instructions: Groin Pain (ED) <JOVAN Hollis - Last Filed: 11/14/22 12:27> Additional Instructions: 1. Resume all home medications as prescribed. 2. Tylenol 1000 mg, orally, every 6 hours as needed for pain control. Do not exceed 4000 mg within 24 hours. 3. Lidocaine patch, apply to area of maximal tenderness as directed on the outside packaging. 4. Please follow-up with your primary care provider at your earliest convenience. 5. I have sent a prescription for blood pressure medication to your pharmacy. 6. Reduce your alcohol consumption. Return to the ER for any worsening symptoms. <JOVAN Hollis - Last Filed: 11/14/22 12:27> Prescriptions: New hydralazine 10 mg tablet 10 mg PO BID 30 Days Qty: 60 0RF losartan 100 mg tablet 100 mg PO DAILY 30 Days Qty: 30 0RF No Action tramadol 50 mg tablet 50 mg PO BID PRN (Reason: pain) Qty: 10 0RF losartan 50 mg tablet 50 mg PO DAILY haloperidol 2 mg tablet 2 mg PO BEDTIME doxepin 6 mg tablet 6 mg PO BEDTIME PRN clonazepam 1 mg tablet 1 mg PO BID PRN gabapentin 800 mg tablet 800 mg PO TID aspirin 81 mg tablet,delayed release (DR/EC) 81 mg PO DAILY clonazepam 0.5 mg tablet 0.5 mg PO TID PRN metformin 1,000 mg tablet 1,000 mg PO BID folic acid 1 mg tablet 1 mg PO DAILY atorvastatin 40 mg tablet 40 mg PO DAILY Breo Ellipta 100-25 mcg/dose blister with device inhalation divalproex 500 mg tablet,delayed release (DR/EC) 1,500 mg PO BEDTIME melatonin 5 mg capsule PO BEDTIME omeprazole 20 mg capsule,delayed release(DR/EC) 20 mg PO DAILY albuterol sulfate 90 mcg/actuation HFA aerosol inhaler inhalation <JOVAN Hollis - Last Filed: 11/14/22 12:27> Referrals: Humphrey Piper MD [Physician] - <JOVAN Hollis - Last Filed: 11/14/22 12:27>
--- NOTE | 2022-11-14 12:28 | ECG_ITS ---
Test Reason : MEDICATIONS Blood Pressure : / mmHG Vent. Rate : 074 BPM Atrial Rate : 074 BPM P-R Int : 156 ms QRS Dur : 118 ms QT Int : 444 ms P-R-T Axes : 055 -19 203 degrees QTc Int : 492 ms Normal sinus rhythm Possible Left atrial enlargement Left ventricular hypertrophy with QRS widening ( R in aVL , Sokolow-Vaca , Jf product , Romhilt-Valle ) ST & Marked T wave abnormality, consider anterolateral ischemia Prolonged QT Abnormal ECG When compared with ECG of 03-MAY-2018 18:12, ST no longer depressed in Inferior leads ST more depressed Lateral leads Inverted T waves have replaced nonspecific T wave abnormality in Inferior leads T wave inversion more evident in Anterior leads Referred By: Parag Ruiz Electronically Signed By:NIKHIL TRUJILLO MD
[2022-11-14 12:47] LABS: MANUAL DIFF FLAG NO
[2022-11-14 12:51] LABS: Basophils Percent Auto 0.6 % (0-2); Eosinophils Absolute Auto 0.1 X10*3/uL (0.0-0.4); Eosinophils Percent Auto 1.3 % (0-4); Hematocrit 51.2 % (42.0-52.0); Hemoglobin 16.9 g/dl (14.0-18.0); Imm Gran Abs Auto 0.03 X10*3/uL (0.00-0.03); Imm Gran Pct Auto 0.5 % (0.0-0.4); Lymphocytes Absolute Auto 1.3 X10*3/uL (1.2-4.9); Lymphocytes Percent Auto 20.4 % (20-40); Mean Corpuscular Hemoglobin 29.9 pg (27.0-33.0); Mean Corpuscular Volume 90.5 fL (80.0-98.0); Monocytes Absolute Auto 0.6 X10*3/uL (0.1-1.2); Neutrophils Absolute Auto 4.3 x10*3/uL (2.0-8.3); Neutrophils Percent Auto 67.2 % (45-73); Platelet Count 193 X10*3/uL (160-400); Red Blood Count 5.66 X10*6/uL (4.60-5.80); Red Cell Distribution Width 13.3 % (11.0-16.0); White Blood Count 6.4 X10*3/uL (4.8-10.8)
[2022-11-14 13:06] LABS: Alanine Aminotransferase 21 U/L (0-40); Albumin Level 4.3 g/dL (3.5-5.0); Alkaline Phosphatase 89 U/L (39-117); Anion Gap 15 (12-20); Aspartate Amino Transferase 30 U/L (5-37); Bilirubin Total 1.9 mg/dL (0.0-1.0); Blood Urea Nitrogen 11 mg/dL (9-16); Calcium 9.6 mg/dL (8.4-10.2); Carbon Dioxide 26 mmol/L (22-29); Chloride 103 mmol/L (96-108); Creatinine Clr Calc Pharmacy 96.3; Estimated Glomerular Filt Rate > 60; Glucose Random 105 mg/dL (60-115); Potassium 3.7 mmol/L (3.3-5.1); Sodium 140 mmol/L (135-145)
[2022-11-14] MEDS: clonazePAM 0.5 MG TABLET PO (14:55)
[2022-11-14] MEDS: Atorvastatin Calcium 40 MG TABLET PO (14:56)
[2022-11-14] MEDS: amLODIPine Besylate 10 MG TABLET PO (14:56)
[2022-11-14 14:59] VITALS: BP 188/122; PULSE 80; RESP 20; TEMP 36.7; O2SAT 98
[2022-11-14 15:33] VITALS: BP 197/139; PULSE 79; RESP 16
[2022-11-14] MEDS: hydrALAZINE HCl 25 MG TABLET PO (16:06)
[2022-11-14 16:11] LABS: Appearance Urine Cloudy; Color Urine Dark Yellow; Glucose Urine UA Negative (Negative); Leukocyte Esterase Urine Large (3+) (Negative); Nitrite Urine Negative (Negative); PH 5.5 (5.0-9.0); Specific Gravity - Urine 1.025 (1.005-1.025); UMIC TRIGGER UACC YES; Urine Blood Negative (Negative); Urine Ketones Trace mg/dL (Negative); Urine Protein 100 (2+) mg/dL (Neg-Trace)
[2022-11-14 16:13] LABS: Bacteria Urine None Seen (None Seen); Hyaline Casts Urine 0-2 /LPF (0-2); RBC Urine 0-2 /HPF (0-2); Squamous Epithelial Cell Urine 0-2 /HPF (0-2); UACC Culture Trigger YES; WBC Urine >50 /HPF (0-5)
[2022-11-14 16:24] LABS: Troponin-I High Sensitivity 30.7 ng/L (<3.5-35.0)
[2022-11-14 16:34] LABS: Amphetamine Screen Urine Not Detected (Not Detect); Barbiturates, Urine Not Detected (Not Detect); Benzodiazepines Screen Urine Not Detected (Not Detect); Cannabinoid Screen Urine POSITIVE (Not Detect); Cocaine Screen Urine Not Detected (Not Detect); Fentanyl, urine Not Detected (Not Detect); Opiate Screen Urine Not Detected (Not Detect); Phencyclidine Screen Urine Not Detected (Not Detect)
[2022-11-14 16:54] VITALS: BP 177/105
--- NOTE | 2022-11-14 17:17 | ECG_ITS ---
Test Reason : HTN Blood Pressure : / mmHG Vent. Rate : 086 BPM Atrial Rate : 086 BPM P-R Int : 158 ms QRS Dur : 120 ms QT Int : 432 ms P-R-T Axes : 038 -23 176 degrees QTc Int : 516 ms Normal sinus rhythm Possible Left atrial enlargement Left ventricular hypertrophy with QRS widening and repolarization abnormality ( R in aVL , Sokolow-Vaca , Criders product , Romhilt-Valle ) Abnormal ECG When compared with ECG of 14-NOV-2022 12:29, No significant change was found Referred By: Juju Lozada Electronically Signed By:NIKHIL TRUJILLO MD
[2022-11-14 17:39] LABS: CT PCR NOT DETECTED (Not Detect.); NG PCR NOT DETECTED (Not Detect.)
--- NOTE | 2022-11-14 17:39 | PC.NURSE ---
pt a&o x4, calm and cooperative. pt sitting in stretcher resting quietly in no apparent distress. asking for food, given sandwich and jello. care plan discussed with . medicated per mar. herbert
[2022-11-14] MEDS: Acetaminophen 325 MG TABLET 975 MG PO (17:47)
[2022-11-14] MEDS: Lidocaine 4 % Patch ADH..PATCH 1 PATCH TRANSDERMA (17:47)
== END 2022-11-14 17:55 | disposition home or self-care (01) ==
PROVIDERS: Physician Assistant; Emergency Provider Student in an Organized Health Care Education/Training Program
DX: R10.32 Left lower quadrant pain (principal); N50.812 Left testicular pain; K40.90 Unilateral inguinal hernia, without obstruction or gangrene, not specified as recurrent; E11.9 Type 2 diabetes mellitus without complications; I10 Essential (primary) hypertension; E78.5 Hyperlipidemia, unspecified; F12.90 Cannabis use, unspecified, uncomplicated; Z87.442 Personal history of urinary calculi; Z79.82 Long term (current) use of aspirin; Z79.02 Long term (current) use of antithrombotics/antiplatelets; Z79.899 Other long term (current) drug therapy; Z79.84 Long term (current) use of oral hypoglycemic drugs
CPT/HCPCS: 0353U; 36415; 74176; 76870; 80053; 80307; 81001; 84484; 85025; 87086; 93005; 93975; 99284; 99285